=== PATIENT | female | born 1965 | race Caucasian/White ===

== ENCOUNTER → 2020-10-02 12:33 | Outpatient (BNVA) | payer BC, SELFPAY | PROVIDERS: PCP Internal Medicine; Visit Provider Internal Medicine | DX: M19.90 Unspecified osteoarthritis, unspecified site (principal); M10.9 Gout, unspecified; E83.119 Hemochromatosis, unspecified; Z79.899 Other long term (current) drug therapy; Z11.59 Encounter for screening for other viral diseases; M54.2 Cervicalgia | CPT/HCPCS: 36415; 99204 ==

== ENCOUNTER 2020-10-02 13:40 | Outpatient (CLI) | payer BC, SELFPAY ==
--- NOTE | 2020-10-02 13:48 | XR_ITS ---
WS: [id number] TECHNIQUE: 2 views of the left hand CLINICAL INFORMATION: M19.90 - Unspecified osteoarthritis, unspecified site COMPARISON: None. FINDINGS: Normal metacarpals. Normal MCP joint. Metacarpal heads are normal in appearance. Normal PIP and DIP j oints. No evidence of acute fracture or dislocation. Radiocarpal joint: Mild narrowing. Carpal bones: Normal. XR/XR hand LT 2V [id number] IMPRESSION: 1. No significant erosive changes. 2. Mild narrowing radiocarpal joint.
--- NOTE | 2020-10-02 13:48 | XR_ITS ---
WS: [id number] TECHNIQUE: 2 views of the right hand CLINICAL INFORMATION: M19.90 - Unspecified osteoarthritis, unspecified site COMPARISON: None. FINDINGS: Normal metacarpals. Normal MCP joint. Metacarpal heads are normal in appearance. Normal PIP and DIP j oints. No evidence of acute fracture or dislocation. Radiocarpal joint: Mild narrowing. Ulna minus variance. Carpal bones: Normal. XR/XR hand RT 2V [id number] IMPRESSION: 1. Mild narrowing of the radiocarpal joint with ulna minus variance. 2. Mild hypertrophic change involving the second distal phalangeal tuft.
--- NOTE | 2020-10-02 13:48 | XR_ITS ---
WS: [id number] FOOT LEFT TECHNIQUE: 2 views of the left foot CLINICAL INFORMATION: M25.50 - Pain in unspecified joint COMPARISON: None. FINDINGS: Mild soft tissue edema. Plantar and Achilles calcaneal spurring with Achilles enthesophyte. Dorsal na vicular and tarsal bones spurring. No significant Erosive changes. XR/XR foot LT 2V [id number] IMPRESSION: 1. No significant erosive changes. 2. Plantar and Achilles calcaneal spurring with Achilles enthesophyte. 3. Dorsal hypertrophic spurring along the midfoot.
--- NOTE | 2020-10-02 13:48 | XR_ITS ---
WS: [id number] SI JOINTS TECHNIQUE: 3 views of the sacroiliac joints CLINICAL INFORMATION: L40.9 - Psoriasis, unspecified COMPARISON: None. FINDINGS: Osteopenia. Postoperative changes pedicle screw fixation lower lumbar spine with interbody fusion gra ft. Pelvic phleboliths. Degenerative arthritis sacroiliac joints. No significant ankylosis or erosive changes. XR/XR sacroiliac jts m 3V [id number] IMPRESSION: Osteopenia with moderate degenerative arthritis sacroiliac joints. No significa nt erosive changes or ankylosis.
--- NOTE | 2020-10-02 13:48 | XR_ITS ---
WS: [id number] KNEE RIGHT TECHNIQUE: 2 views of the right knee CLINICAL INFORMATION: M19.90 - Unspecified osteoarthritis, unspecified site COMPARISON: None. FINDINGS: Normal anatomic alignment. Hypertrophic patella. No significant joint effusion. Soft tissue edema. Mo derate osteoarthritis involving the medial joint compartment and patellofemoral articulation. Hypertr ophic spurring along the joint line. Small osteochondroma along the medial tibial metaphysis. XR/XR knee RT 1-2V [id number] IMPRESSION: Moderate degenerative narrowing medial joint compartment and patellofemoral art iculation. Kellgren-Chavez Classification: grade 3 (moderate): moderate multiple osteoph ytes, definite narrowing of joint space and some sclerosis and possible deformi ty of bone ends
--- NOTE | 2020-10-02 13:48 | XR_ITS ---
WS: [id number] FOOT RIGHT TECHNIQUE: 2 views of the right foot CLINICAL INFORMATION: M25.50 - Pain in unspecified joint COMPARISON: None. FINDINGS: No evidence of acute fracture or dislocation. Normal tarsal metatarsal alignment. Moderate degenerati ve hypertrophic changes involving the midfoot tarsal bones and TMT joints. Plantar calcaneal spurring . Achilles calcaneal spurring with insertional ossified loose body. Soft tissue edema. XR/XR foot RT 2V [id number] IMPRESSION: 1. No significant erosive changes. 2. Plantar calcaneal spurring and Achilles spurring with insertional loose bod y 3. Moderate degenerative hypertrophic changes involving the midfoot tarsal bon es and TMT joints
== END 2020-10-02 13:41 | disposition home or self-care (01) ==
PROVIDERS: PCP Internal Medicine; Visit Provider Internal Medicine
DX: L40.9 Psoriasis, unspecified (principal); M19.90 Unspecified osteoarthritis, unspecified site; M25.50 Pain in unspecified joint; Z11.59 Encounter for screening for other viral diseases
CPT/HCPCS: 36415; 72202; 73120; 73560; 73620; 80053; 82550; 82728; 83540; 84550; 85025; 85651; 86140; 86431; 86704; 86803; 87340